=== PATIENT | female | born 1960 | race Caucasian/White ===

== ENCOUNTER → 2021-09-08 | Day surgery (SDC) | payer MEDICAID ==
[~2021-09-08] VITALS: Ht 157.5 cm; Wt 85.3 kg
[~2021-09-08] MED LIST: DEXAMETHASONE 4MG/ML 1ML VIAL ONE; FENTANYL CITRATE/PF 50MCG/ML 2ML VIAL ONE; HYDROMORPHONE HCL/PF 2MG/ML (OR) ONE; HYDROMORPHONE HCL/PF 2MG/ML CPJ IV PRN; LABETALOL 5MG/ML SYR 20 MG/4 ML SYRINGE IV PRN; LACTATED RINGERS 1,000 ML IV SCH; LOSA50TA41 PO; MEPERIDINE HCL/PF 25MG/ML CPJ IV PRN; MIDAZOLAM HCL 2 MG/2 ML VIAL ONE; ONDANSETRON HCL 4MG/2ML INJ IV PRN; ONDANSETRON HCL 4MG/2ML INJ ONE; PROPOFOL 200MG/20ML VIAL IV ONE
[2021-09-08 16:58] VITALS: BP 152/84
== END | disposition home or self-care (01) ==
LOC: NM 06:31 → EDSTATUS 10:30
PROVIDERS: ATTEND Specialist
DX: C50.912 Malignant neoplasm of unspecified site of left female breast (principal); I10 Essential (primary) hypertension; E78.00 Pure hypercholesterolemia, unspecified; Z90.49 Acquired absence of other specified parts of digestive tract; Z98.890 Other specified postprocedural states; Z79.899 Other long term (current) drug therapy
CPT/HCPCS: 19303; 38525; 38790; 78195; 87426; 88305; 88331; C1893; J1100; J1170; J2250; J2405; J2704; J3010; J3490; Q9968

== ENCOUNTER 2021-10-05 16:24 | Emergency (ER) | payer MEDICAID ==
[~2021-10-05] VITALS: Ht 152.4 cm; Wt 89.0 kg
[~2021-10-05 16:24] MED LIST changes: -DEXAMETHASONE 4MG/ML 1ML VIAL ONE; -FENTANYL CITRATE/PF 50MCG/ML 2ML VIAL ONE; -HYDROMORPHONE HCL/PF 2MG/ML (OR) ONE; -HYDROMORPHONE HCL/PF 2MG/ML CPJ IV PRN; -LABETALOL 5MG/ML SYR 20 MG/4 ML SYRINGE IV PRN; -LACTATED RINGERS 1,000 ML IV SCH; -MEPERIDINE HCL/PF 25MG/ML CPJ IV PRN; -MIDAZOLAM HCL 2 MG/2 ML VIAL ONE; -ONDANSETRON HCL 4MG/2ML INJ IV PRN; -ONDANSETRON HCL 4MG/2ML INJ ONE; -PROPOFOL 200MG/20ML VIAL IV ONE
[2021-10-05 16:50] VITALS: BP 166/72
[2021-10-05] MEDS ORDERED: VANCOMYCIN 1 G PREMIX 200 ML IV SCH (19:00)
[2021-10-05] MEDS ORDERED: CEFTRIAXONE 1 G PREMIX 50 ML IV ONE (19:00)
[2021-10-05 20:07] LABS: BASOPHILS % 0.2 % (0.0-2.0); EOSINOPHILS % 2.7 % (0.0-5.0); HEMATOCRIT. 35.9 % (36.0-48.0); LYMPHOCYTES % 10.4 % (20.0-50.0); MEAN CORPUSCULAR VOLUME 92.3 fL (81.0-99.0); MEAN PLATELET VOLUME 8.5 fl (7.4-10.4); MONOCYTES % 8.1 % (2.0-8.0); NEUTROPHILS % 78.6 % (40.0-76.0); PLATELET 307 x1000/uL (130-400); RED BLOOD CELL COUNT 3.88 mill/uL (4.2-5.4); RED CELL DISTRIBUTION WIDTH 12.8 % (11.6-14.6)
[2021-10-05 20:12] LABS: CHLORIDE 101 mEq/L (98-107)
[2021-10-05] MEDS ORDERED: CEPH500T MT ×2 (22:25)
[2021-10-05] MEDS ORDERED: SULF1TAB48 MT ×2 (22:25)
[2021-10-05] MEDS ORDERED: MUPI1OIN4 TP ×2 (22:26)
[2021-10-06] MEDS ORDERED: IBUP-2029 PO (17:47)
[2021-10-06] MEDS ORDERED: FENTANYL CITRATE/PF 50MCG/ML 2ML VIAL IV PRN (19:15)
== END 2021-10-05 22:50 | disposition home or self-care (01) ==
LOC: ER 16:24
DX: T81.40XA Infection following a procedure, unspecified, initial encounter (principal); U07.1 COVID-19; Z85.3 Personal history of malignant neoplasm of breast; Z90.12 Acquired absence of left breast and nipple; Y83.8 Other surgical procedures as the cause of abnormal reaction of the patient, or of later complication, without mention of misadventure at the time of the procedure; Y92.018 Other place in single-family (private) house as the place of occurrence of the external cause
CPT/HCPCS: 36415; 80053; 83605; 84145; 85025; 99283

== ENCOUNTER 2021-10-06 12:41 | Inpatient (IN) | payer MEDICAID ==
[~2021-10-06] VITALS: Ht 157.5 cm; Wt 78.5 kg
[~2021-10-06 12:41] MED LIST changes: +CEPH500T MT; +MUPI1OIN4 TP; +SULF1TAB48 MT
[2021-10-06 15:18] LABS: HEMATOCRIT. 34.2 % (36.0-48.0); HEMOGLOBIN. 11.2 g/dL (12.0-16.0); MEAN CORPUSCULAR HEMOGLOBIN 29.5 pg (28.0-32.0); MEAN CORPUSCULAR VOLUME 90.4 fL (81.0-99.0); PLATELET 263 x1000/uL (130-400); RED BLOOD CELL COUNT 3.79 mill/uL (4.2-5.4)
[2021-10-06 15:24] LABS: CHLORIDE 103 mEq/L (98-107)
[2021-10-06 15:29] LABS: INR 1.1; PROTHROMBIN TIME 11.8 sec (9.6-11.0)
[2021-10-06 17:25] LABS: PLATELET ESTIMATE NORMAL
[2021-10-06 17:32] VITALS: BP 144/64
[2021-10-06] MEDS ORDERED: LIDOCAINE HCL 1% 20ML VIAL (Pyxis) INJ ONE (17:46)
[2021-10-06] MEDS ORDERED: BUPIVACAINE HCL/PF 0.5% (5MG/ML) 10ML ONE (17:46)
[2021-10-06] MEDS ORDERED: IBUP-2029 PO (17:47)
[2021-10-06] MEDS ORDERED: POLYMYXIN B SULFATE 500000 UNITS/VIAL ONE (17:47)
[2021-10-06] MEDS ORDERED: FENTANYL CITRATE/PF 50MCG/ML 2ML VIAL ONE (18:09)
[2021-10-06] MEDS ORDERED: PROPOFOL 200MG/20ML VIAL IV ONE (18:09)
[2021-10-06] MEDS ORDERED: MIDAZOLAM HCL 2 MG/2 ML VIAL ONE (18:09)
[2021-10-06] MEDS ORDERED: EPHEDRINE SULFATE 50MG/ML VIAL ONE (18:10)
[2021-10-06] MEDS ORDERED: LIDOCAINE HCL 1% 10 MG/ML 10ML VIAL ONE (18:10)
[2021-10-06] MEDS ORDERED: DEXAMETHASONE 4MG/ML 1ML VIAL ONE (18:10)
[2021-10-06] MEDS ORDERED: CEFAZOLIN SODIUM 1000MG/VIAL ONE (18:10)
[2021-10-06] MEDS ORDERED: ONDANSETRON HCL 4MG/2ML INJ ONE (18:11)
[2021-10-06] MEDS ORDERED: FENTANYL CITRATE/PF 50MCG/ML 2ML VIAL IV PRN (18:45)
[2021-10-06] MEDS ORDERED: HYDROCODONE/ACETAMINOPHEN 5/325MG TABLET PO PRN ×2 (19:00→19:14)
[2021-10-06] MEDS ORDERED: ACETAMINOPHEN 325MG TABLET PO PRN (19:00)
[2021-10-06] MEDS ORDERED: NALOXONE HCL 0.4MG/ML VIAL IV PRN (20:00)
[2021-10-06] MEDS ORDERED: CEFAZOLIN SODIUM 1000MG/VIAL IV SCH (22:00)
[2021-10-06] MEDS: PIPERACILLIN/TAZOBACTAM 3.375 G in DEXTROSE 5% WATER 50 ML IV SCH (22:09)
[2021-10-06] MEDS: VANCOMYCIN 750 MG PREMIX 150 ML IV SCH (22:09)
[2021-10-06] MEDS: CEFAZOLIN 1000MG PREMIX 50 ML IV SCH (22:09)
[2021-10-07] MEDS: CEFAZOLIN 1000MG PREMIX 50 ML IV SCH ×3 (06:12→21:02)
[2021-10-07] MEDS: PIPERACILLIN/TAZOBACTAM 3.375 G in DEXTROSE 5% WATER 50 ML IV SCH ×3 (06:12→21:02)
[2021-10-07 06:58] VITALS: BP 136/55
[2021-10-07] MEDS: VANCOMYCIN 750 MG PREMIX 150 ML IV SCH ×2 (09:01→21:01)
[2021-10-07] MEDS: ENOXAPARIN 40MG/0.4ML SYR SUBCUT SCH (09:04)
[2021-10-07 16:00] VITALS: BP 126/56
[2021-10-07 20:00] VITALS: BP 154/73
[2021-10-08] VITALS: BP 119/55
[2021-10-08 04:00] VITALS: BP 141/72
[2021-10-08] MEDS: CEFAZOLIN 1000MG PREMIX 50 ML IV SCH ×3 (06:08→21:00)
[2021-10-08] MEDS: PIPERACILLIN/TAZOBACTAM 3.375 G in DEXTROSE 5% WATER 50 ML IV SCH ×3 (06:09→20:59)
[2021-10-08 06:17] LABS: CHLORIDE 105 mEq/L (98-107)
[2021-10-08 08:00] VITALS: BP 155/64
[2021-10-08] MEDS: VANCOMYCIN 750 MG PREMIX 150 ML IV SCH ×2 (09:12→20:59)
[2021-10-08] MEDS: ENOXAPARIN 40MG/0.4ML SYR SUBCUT SCH (09:13)
[2021-10-08 12:00] VITALS: BP 118/61
[2021-10-08] MEDS ORDERED: HYDROMORPHONE HCL/PF 2MG/ML CPJ IV PRN (12:45)
[2021-10-08] MEDS: ONDANSETRON HCL 4MG/2ML INJ IV PRN ×2 (14:40→21:20)
[2021-10-08 16:00] VITALS: BP 137/65
[2021-10-08 20:00] VITALS: BP 147/65
[2021-10-09] VITALS: BP 155/97
[2021-10-09 04:00] VITALS: BP 147/72
[2021-10-09] MEDS: CEFAZOLIN 1000MG PREMIX 50 ML IV SCH ×2 (06:26→14:34)
[2021-10-09] MEDS: PIPERACILLIN/TAZOBACTAM 3.375 G in DEXTROSE 5% WATER 50 ML IV SCH ×2 (06:26→14:34)
[2021-10-09 08:00] VITALS: BP 125/60
[2021-10-09] MEDS: ENOXAPARIN 40MG/0.4ML SYR SUBCUT SCH (09:23)
[2021-10-09] MEDS: VANCOMYCIN 750 MG PREMIX 150 ML IV SCH ×2 (10:06→23:08)
[2021-10-09 12:00] VITALS: BP 123/63
[2021-10-09 16:00] VITALS: BP 137/70
[2021-10-09 20:00] VITALS: BP 147/76
[2021-10-10] VITALS: BP 132/70
[2021-10-10 04:00] VITALS: BP 125/64
[2021-10-10 08:00] VITALS: BP 150/60
[2021-10-10] MEDS: ENOXAPARIN 40MG/0.4ML SYR SUBCUT SCH (09:07)
[2021-10-10] MEDS: VANCOMYCIN 750 MG PREMIX 150 ML IV SCH ×2 (09:07→23:40)
[2021-10-10 12:00] VITALS: BP 150/73
[2021-10-10 16:00] VITALS: BP 149/80
[2021-10-10 20:00] VITALS: BP 147/67
[2021-10-11] VITALS: BP 141/64
[2021-10-11 04:00] VITALS: BP 148/78
[2021-10-11 08:00] VITALS: BP 150/80
[2021-10-11] MEDS: ENOXAPARIN 40MG/0.4ML SYR SUBCUT SCH (09:43)
[2021-10-11] MEDS: VANCOMYCIN 750 MG PREMIX 150 ML IV SCH ×2 (09:43→20:47)
[2021-10-11 12:00] VITALS: BP 151/81
[2021-10-11 16:00] VITALS: BP 156/75
[2021-10-11 20:00] VITALS: BP 144/68
[2021-10-12] VITALS: BP 157/62
[2021-10-12 04:00] VITALS: BP 158/64
[2021-10-12 08:00] VITALS: BP 160/69
[2021-10-12] MEDS: ENOXAPARIN 40MG/0.4ML SYR SUBCUT SCH (09:48)
[2021-10-12 12:00] VITALS: BP 152/77
[2021-10-12 16:00] VITALS: BP 154/74
[2021-10-12 17:23] VITALS: BP 152/74
== END 2021-10-12 18:45 | disposition home or self-care (01) | DRG 711 ==
LOC: ER 12:41 → EDBEDREQ 14:36 → ENRESERV 15:26 → 7EST 15:44 → EDBEDREQSVC 15:49 → 7WST 17:35
PROVIDERS: ADMIT Internal Medicine; ATTEND Internal Medicine
PROC: 0H9U0ZZ Drainage of Left Breast, Open Approach (ICD-10-PCS; principal; 2021-10-06)
PROC: 0JD60ZZ Extraction of Chest Subcutaneous Tissue and Fascia, Open Approach (ICD-10-PCS; 2021-10-06)
DX: T81.41XA Infection following a procedure, superficial incisional surgical site, initial encounter (principal); U07.1 COVID-19; E44.0 Moderate protein-calorie malnutrition; Y83.8 Other surgical procedures as the cause of abnormal reaction of the patient, or of later complication, without mention of misadventure at the time of the procedure; I10 Essential (primary) hypertension; N61.1 Abscess of the breast and nipple; Z68.31 Body mass index [BMI] 31.0-31.9, adult; Z90.49 Acquired absence of other specified parts of digestive tract; Y92.89 Other specified places as the place of occurrence of the external cause; Z98.890 Other specified postprocedural states
CPT/HCPCS: 36415; 80048; 80053; 80202; 85025; 87070; 87075; 87077; 87186; 87426; 93005; 99285; C1893; J0690; J1100; J1170; J1650; J2250; J2405; J2543; J2704; J3010; J3370; J3490; J7040; J7060

== ENCOUNTER → 2021-10-31 | Day surgery (SDC) | payer MEDICAID ==
[~2021-10-31] VITALS: Ht 152.4 cm; Wt 81.6 kg
[~2021-10-31] MED LIST changes: +BUPIVACAINE HCL/PF 0.5% (5MG/ML) 10ML ONE; -CEPH500T MT; +CHOL2000 PO; +FENTANYL CITRATE/PF 50MCG/ML 2ML VIAL ONE; +IBUP-2029 PO; +LIDOCAINE HCL 1% 10 MG/ML 10ML VIAL ONE; +LIDOCAINE HCL 1% 20ML VIAL (Pyxis) INJ ONE; -LOSA50TA41 PO; +MIDAZOLAM HCL 2 MG/2 ML VIAL ONE; -MUPI1OIN4 TP; +POLYMYXIN B SULFATE 500000 UNITS/VIAL ONE; +PROPOFOL 10MG/ML 100ML 100 ML IV ONE; +SKIN ADHESIVE 0.7 GM EA TOP ONE; -SULF1TAB48 MT
[2021-10-31 07:40] LABS: BASOPHILS % 0.4 % (0.0-2.0); EOSINOPHILS % 8.8 % (0.0-5.0); HEMATOCRIT. 36.9 % (36.0-48.0); HEMOGLOBIN. 12.4 g/dL (12.0-16.0); MEAN CORPUSCULAR HEMOGLOBIN 30.3 pg (28.0-32.0); MEAN PLATELET VOLUME 9.8 fl (7.4-10.4); MONOCYTES % 6.5 % (2.0-8.0); NEUTROPHILS % 65.3 % (40.0-76.0); PLATELET 200 x1000/uL (130-400); RED CELL DISTRIBUTION WIDTH 13.8 % (11.6-14.6)
[2021-10-31 07:51] LABS: PROTHROMBIN TIME 10.7 sec (9.6-11.0)
[2021-10-31 08:01] LABS: CLARITY URINE CLEAR (CLEAR); COLOR URINE YELLOW (YELLOW); KETONES URINE NEGATIVE (NEGATIVE); LEUKOCYTE ESTERASE URINE 1+ (NEGATIVE); NITRITE URINE NEGATIVE (NEGATIVE); OCCULT BLOOD URINE NEGATIVE (NEGATIVE); PH URINE 7.5 (4.5-8.0); PROTEIN URINE NEGATIVE (NEGATIVE); SPECIFIC GRAVITY URINE 1.009 (1.005-1.030); UROBILINOGEN URINE 0.2 E.U./dL (0.2-1.0)
[2021-10-31 08:34] LABS: CHLORIDE 104 mEq/L (98-107)
== END | disposition home or self-care (01) ==
LOC: OR 06:20
PROVIDERS: ATTEND Specialist
DX: Z48.1 Encounter for planned postprocedural wound closure (principal); C50.912 Malignant neoplasm of unspecified site of left female breast; I10 Essential (primary) hypertension; Z79.899 Other long term (current) drug therapy; Z98.890 Other specified postprocedural states; Z90.49 Acquired absence of other specified parts of digestive tract; Z20.822 Contact with and (suspected) exposure to COVID-19
CPT/HCPCS: 12020; 36415; 80048; 81003; 85025; 85610; 87426; 93005; C1893; J2250; J2704; J3010; J3490